=== PATIENT | male | born 2000 | race Two or more races ===

== ENCOUNTER 2024-05-06 14:05 | Emergency (ER) | payer MEDICAID, OTHER ==
[~2024-05-06] VITALS: Ht 175.3 cm; Wt 81.8 kg
[2024-05-06 14:44] VITALS: BP 138/84; PULSE 87; RESP 13; TEMP 98.6; O2SAT 99
[2024-05-06] MEDS ORDERED: CYCL-837 PO (15:34)
[2024-05-06] MEDS ORDERED: IBUP-1454 PO (15:34)
== END 2024-05-06 15:42 | disposition home or self-care (01) ==
LOC: EDBD 14:05 → ER 14:05
DX: S16.1XXA Strain of muscle, fascia and tendon at neck level, initial encounter (principal); V89.2XXA Person injured in unspecified motor-vehicle accident, traffic, initial encounter; Y93.89 Activity, other specified; Y92.89 Other specified places as the place of occurrence of the external cause; Y99.8 Other external cause status
CPT/HCPCS: 72125